=== PATIENT | female | born 1985 | race Caucasian/White ===

== ENCOUNTER 2020-10-13 10:43 | Emergency (ER) | payer BC, SELFPAY ==
[2020-10-13] VITALS (9 sets, daily range): BP systolic 118–138; BP diastolic 76–122; PULSE 56–84; RESP 12–21; TEMP 36.4; O2SAT 96
--- NOTE | ~2020-10-13 | XR_ITS ---
EXAMINATION: XR chest 1V portable EXAM DATE: 10/13/2020 11:23 INDICATION: Mid chest pain under breast. TECHNIQUE: Portable AP frontal chest x-ray was obtained. Comparison is made to prior examination from 10/27/2009. FINDINGS: The lungs are clear. There are no pleural effusions. The cardiomediastinal silhouette is within normal limits. There is no pneumothorax suspected. The bones and soft tissues are unremarkab le. IMPRESSION: No acute cardiopulmonary findings. Reviewed, dictated and finalized at location B. ICE PARTS COORDINATOR
--- NOTE | ~2020-10-13 | US_ITS ---
EXAMINATION: US abdomen limited EXAM DATE: 10/13/2020 11:52 INDICATION: Right upper quadrant pain. TECHNIQUE: Multiple grayscale and Doppler images of the abdomen right upper quadrant were obtained (b y a technologist who performed the scan) and subsequently reviewed. There is no prior study for winter marks. FINDINGS: The pancreatic head and body are normal in appearance. The pancreatic tail is not visualized. The l iver has normal echogenicity and contour. There are no focal liver lesions identified. There is no evidence of intrahepatic biliary duct dilation. Portal venous flow was seen in the hepatopedal, nor mal direction and has normal Doppler waveform. No right-sided hydronephrosis. Common bile duct measures 4 mm, which is normal. The gallbladder wall is normal in thickness, with ex pected amount of distention. No sonographic evidence of pericholecystic fluid. There is cholelithia sis. Technologist performing exam reports patient did not demonstrate sonographic Brasher's sign. P lemegan note that this sign is less reliable in patients who have received pain medication. IMPRESSION: Cholelithiasis. Reviewed, dictated and finalized at location B. INUM BOAT INSPECTOR IMPRESSION: Cholelithiasis.
--- NOTE | 2020-10-13 10:50 | ECG_ITS ---
Measurements Intervals [place] Rate: 73 P: 42 GA: 129 QRS: 40 QRSD: 105 T: 61 QT: 378 QTc: 419 Interpretive Statements SINUS RHYTHM BASELINE ARTIFACT- I, II, III, AVR, AVL, AVF NORMAL ECG Electronically Signed On 10-13-2020 11:13:20 UPPER CUTTER MACHINE by Beau Allen D.O.
[2020-10-13 11:08] LABS: Basophils Absolute Auto 0.1 K/mm3 (0.0-0.1); Basophils Percent Auto 0.7 % (0.2-1.2); Eosinophils Absolute Auto 0.3 K/mm3 (0-0.3); Hematocrit 38.7 % (37.0-47.0); Immature Granulocyte Absolute 0.01 K/mm3 (0.00-0.031); Immature Granulocyte Percent A 0.1 % (0-0.5); Lymphocytes Absolute Auto 1.94 K/mm3 (0.9-3.2); Lymphocytes Percent Auto 26.4 % (18.3-44.2); Mean Corpuscular HGB Conc 33.6 g/dl (32-36); Mean Corpuscular Hemoglobin 29.7 pg (26-34); Mean Corpuscular Volume 88.6 fl (80-100); Mean Platelet Volume 9.6 fl (7.4-10.4); Monocytes Absolute Auto 0.4 K/mm3 (0.1-0.6); Monocytes Percent Auto 4.8 % (2.6-8.5); Neutrophils Absolute Auto 4.7 K/mm3 (1.3-6.7); Platelet Count Result 380 k/mm3 (150-375); Red Blood Count 4.37 M/mm3 (4.2-5.4); Red Cell Distribution Width 12.5 % (11.5-14.5); White Blood Count 7.3 K/mm3 (4.5-10.0)
[2020-10-13 11:24] LABS: Alanine Aminotransferase 27 U/L (4-35); Albumin Level 4.2 g/dL (3.5-5.1); Alkaline Phosphatase 110 U/L (38-126); Anion Gap 6 mmol/L (8-16); Aspartate Amino Transferase 29 U/L (14-36); Bilirubin,Total 0.3 mg/dL (0.2-1.3); Blood Urea Nitrogen 16 mg/dL (7-17); Calcium 9.1 mg/dL (8.4-10.2); Carbon Dioxide 28 mmol/L (22-30); Chloride 106 mmol/L (98-107); Estimated CRCL calculation 110 ml/min; Estimated Glomerular Filt Rate > 60; Glucose 109 mg/dL (65-105); Potassium 4.2 mmol/L (3.4-5.0); Sodium 140 mmol/L (137-145)
[2020-10-13] MEDS: fentaNYL CITRATE INJ (*CRX) 100 MCG/2 ML VIAL 50 MCG IV PUSH (11:30)
--- NOTE | 2020-10-13 11:32 | PC.NURSE ---
Report to AMY Peres, to continue care.
--- NOTE | 2020-10-13 11:32 | PC.NURSE ---
received report from Mike REYES. patient medicated as ordered.
[2020-10-13 11:50] LABS: Lipase 58 U/L (23-300)
[2020-10-13 11:58] LABS: Troponin I < 0.012 ng/mL (0.000-0.034)
[2020-10-13 12:22] LABS: Add Urine Microscopic? YES; Appearance Urine Clear (Clear); Bacteria Urine 1+ /hpf; Bilirubin Urine Negative (Negative); Blood Urine 1+ (Negative); Color Urine Yellow (Yellow); Glucose Urine UA Negative (Negative); Ketones Urine Negative (Negative); Leukocyte Esterase Ur Negative LEU/UL (Negative); Mucus Urine Few /lpf; Nitrate Urine Negative (Negative); Protein Urine 1+ mg/dL (Negative); Specific Grav Ur 1.027 (1.001-1.035); Squamous Epithelial Cell Urine Few /hpf (Few); Urobilinogen Urine Negative mg/dL (<2.0); WBC Urine 0-3 /hpf
[2020-10-13] MEDS: SODIUM CHLORIDE 0.9% IV 1,000 ML 999 ML IV CONT (12:45)
[2020-10-13 12:54] LABS: Amphetamine Screen Urine Negative (Negative); Barbiturate Screen Urine Negative (Negative); Benzodiazepines Screen Urine Negative (Negative); Cannabinoid Screen Urine Negative (Negative); Cocaine Screen Urine Negative (Negative); Methadone Screen Urine Negative (Negative); Opiate Screen Urine Negative (Negative); Phencyclidine Screen Urine Negative (Negative)
[2020-10-13] MEDS: ONDANSETRON INJ 4 MG/2 ML VIAL IV PUSH (12:54)
[2020-10-13] MEDS: HYDROmorphone HCL INJ (*CRX) 1 MG/ML SYR 0.5 MG IV PUSH (13:34)
--- NOTE | 2020-10-13 14:14 | ED.ABDPAIN ---
HPI - Abdominal Pain General Chief Complaint: Abdominal Pain Stated Complaint: Right upper quadrant pain Time Seen by Provider: 10/13/20 10:50 Source: patient Mode of arrival: ambulatory Limitations: no limitations History of Present Illness HPI narrative: Patient presents with chief complaint of epigastric discomfort that wraps around to her right upper quadrant. Patient states that the pain started this morning at 6:30 AM. Patient states that she has had a few episodes of vomiting. Patient states that she has had these episodes randomly intermittently over the past year but states that they have been more frequent over the past few months. Patient states that she has not noticed triggering events however she does report eating a steak last night for dinner. Patient denies diarrhea, chest pain, shortness of breath, any other areas of abdominal pain, changes in stool. Patient states that she is not as she uses control pills. Patient states that her only chronic medical condition is anxiety. Related Data Home Medications Medication Instructions Recorded Confirmed norethindrone-e.estradiol-iron tablet 10/13/20 [Aurovela Fe 1-20 (28)] sertraline mg 10/13/20 Allergies Allergy/AdvReac Type Severity Reaction Status Date / Time No Known Allergies Allergy Verified 10/13/20 11:43 Review of Systems Review of Systems: Narrative: CONSTITUTIONAL: Denies fever, chills, or sweats. EYES: Denies visual changes, redness, or discharge. ENT: Denies rhinorrhea, congestion, sore throat, or otalgia. CARDIOVASCULAR: Denies chest pain, palpitations, or edema. RESPIRATORY: Denies cough or dyspnea. GASTROINTESTINAL: Reports abdominal pain, nausea, vomiting, denies diarrhea. GENITOURINARY: Denies dysuria or hematuria. SKIN: Denies rash or itching. MUSCULOSKELETAL: Denies back pain, joint pain, or myalgia. NEUROLOGIC: Denies headache, numbness, dizziness, or weakness. PSYCHIATRIC: Denies anxiety or depression. PMFSH Family History Family History (Updated 04/08/16 @ 23:19 by DOCTOR UNKNOWN) Grandparent Cerebrovascular accident Father Family history of diabetes mellitus in first degree relative Social History Social History Smoking status: Never smoker Second hand tobacco smoke exposure: No Smoking end date: 09/11/11 Alcohol intake: never Exam Narrative: Exam Narrative: GENERAL: Well-appearing, well-nourished, and writhing in pain HEAD: Normocephalic, atraumatic. EYES: PERRLA and EOMI. NECK: Supple. No adenopathy or masses. CHEST: Clear to auscultation. No respiratory distress. No wheezes rales or rhonchi HEART: Regular rate and rhythm. No murmur heard. Normal peripheral pulses. ABDOMEN: Soft, tender epigastrically in the right upper quadrant, nondistended, normal active bowel sounds. EXTREMITIES: Normal range of motion. No edema. SKIN: Warm, dry, no rash. NEURO: No focal deficits. Alert and oriented x3. PSYCH: Normal mood and affect. Course Vital Signs Vital signs: Vital Signs Temperature 97.5 F L 10/13/20 10:54 Pulse Rate 77 10/13/20 10:54 Respiratory Rate 18 10/13/20 10:54 Blood Pressure 120/81 10/13/20 10:54 Pulse Oximetry 96 10/13/20 10:54 Temperature 97.5 F L 10/13/20 10:54 Pulse Rate 61 10/13/20 13:31 Respiratory Rate 15 10/13/20 13:31 Blood Pressure 124/85 10/13/20 13:31 Pulse Oximetry 96 10/13/20 10:54 MDM - Abdominal Pain MDM Narrative Medical decision making narrative: Patient ultrasound shows signs of cholelithiasis without obstruction. Patient LFTs are stable. Patient is feeling improved with fluids and pain medication. Discussed follow up with general surgery regarding HIDA scan and further gallbladder evaluation. Discussed dietary restrictions to avoid/lessen flares. Discussed return to ER instructions if symptoms worsen or perist. Patient is feeling better and verbalizes understanding and agreement with plan. Differential Diagnosis
== END 2020-10-13 14:52 | disposition home or self-care (01) ==
PROVIDERS: Physician Assistant; Emergency Provider Emergency Medicine
DX: K80.20 Calculus of gallbladder without cholecystitis without obstruction (principal)
CPT/HCPCS: 36415; 71045; 76705; 80053; 80307; 81001; 81025; 83690; 84484; 85025; 93005; 96361; 96374; 96375; 99284; J1170; J2405; J3010; J7030

== ENCOUNTER 2020-10-22 12:04 | Observation (INO) | payer BC, SELFPAY ==
[2020-10-22] VITALS (14 sets, daily range): BP systolic 92–135; BP diastolic 49–81; PULSE 61–77; RESP 12–18; TEMP 35.9–36.8; O2SAT 95–100
[2020-10-22] MEDS: ONDANSETRON INJ 4 MG/2 ML VIAL IV PUSH ×2 (12:39→18:21)
[2020-10-22] MEDS: SODIUM CHLORIDE 0.9% IV 1,000 ML 999 ML IV CONT (12:39)
[2020-10-22] MEDS: MORPHINE SULFATE (*CRX) 4 MG/ML INJ IV PUSH (12:39)
--- NOTE | 2020-10-22 12:40 | ED.GENADULT ---
HPI - General Adult General Chief complaint: Abdominal Pain Stated complaint: epigastric pain Time Seen by Provider: 10/22/20 12:21 History of Present Illness HPI narrative: Patient a 35-year-old female who presents the emergency department chief complaint of right upper quadrant pain. Patient reports she has history of cholelithiasis and is actually scheduled for a cholecystectomy later this month by her surgeon Dr. Gardner patient has been taking pain medication to control her pain at home but started having worsening pain in the last 24 hours. Patient states that she had taken a couple doses of pain medicine this morning but around 6 AM she started having severe pain in the right upper quadrant. Patient states she is unable to get comfortable called her surgeon who recommended that she come to the emergency department. Related Data Home Medications Medication Instructions Recorded Confirmed norethindrone-e.estradiol-iron tablet 10/13/20 10/21/20 [Aurovela Fe 1-20 (28)] sertraline mg 10/13/20 10/21/20 Allergies Allergy/AdvReac Type Severity Reaction Status Date / Time No Known Allergies Allergy Verified 10/22/20 12:17 Review of Systems Review of Systems: Narrative: A 10 system review of systems was completed on the patient and is negative except for what is stated in the HPI. Nursing and ancillary documentation was reviewed. PMFSH Past Medical History Medical History Anxiety Surgical History Surgical History History of dilation and curettage x2 Kyle teeth extracted Family History Family History Grandparent Cerebrovascular accident Father Family history of diabetes mellitus in first degree relative Social History Social History Smoking status: Never smoker Second hand tobacco smoke exposure: No Smoking end date: 09/11/11 Alcohol intake: never Additional occupation/education comments: Sales Gender identity (if verbalized by the patient): Female Comments Past medical history significant for cholelithiasis Exam Narrative: Exam Narrative: GENERAL: Well-appearing, well-nourished, and in moderate pain distress. HEAD: Normocephalic, atraumatic. EYES: PERRLA and EOMI. ENT: Nares clear, no rhinorrhea or epistaxis. Mucous membranes moist. NECK: Supple. CHEST: Clear to auscultation. No respiratory distress. HEART: Regular rate and rhythm. No murmur heard. Normal peripheral pulses. ABDOMEN: Soft, tender to palpation in the right upper quadrant, nondistended, normal active bowel sounds. EXTREMITIES: Normal range of motion. No edema. SKIN: Warm, dry, no rash. NEURO: No focal deficits. Alert and oriented x3. PSYCH: Normal mood and affect. Course Vital Signs Vital signs: Vital Signs Temperature 36.4 C L 10/22/20 12:05 Pulse Rate 76 10/22/20 12:05 Respiratory Rate 16 10/22/20 12:05 Blood Pressure 121/68 10/22/20 12:05 Pulse Oximetry 98 10/22/20 12:05 Temperature 36.4 C L 10/22/20 12:05 Pulse Rate 76 10/22/20 12:05 Respiratory Rate 16 10/22/20 12:05 Blood Pressure 121/68 10/22/20 12:05 Pulse Oximetry 98 10/22/20 12:05 Medical Decision Making Vital Signs Vital Signs: Vital Signs Temperature 36.4 C L 10/22/20 12:05 Pulse Rate 76 10/22/20 12:05 Respiratory Rate 16 10/22/20 12:05 Blood Pressure 121/68 10/22/20 12:05 Pulse Oximetry 98 10/22/20 12:05 Temperature 36.4 C L 10/22/20 12:05 Pulse Rate 76 10/22/20 12:05 Respiratory Rate 16 10/22/20 12:05 Blood Pressure 121/68 10/22/20 12:05 Pulse Oximetry 98 10/22/20 12:05 Lab Data Result diagrams: 10/22/20 12:10 10/22/20 12:10 Labs: Lab Results 10/22/20 10/22/20 10/22/20 Range/Unit
[2020-10-22 12:44] LABS: Basophils Absolute Auto 0.1 K/mm3 (0.0-0.1); Basophils Percent Auto 0.4 % (0.2-1.2); Eosinophils Absolute Auto 0.1 K/mm3 (0-0.3); Eosinophils Percent Auto 0.5 % (0-4.4); Hematocrit 38.8 % (37.0-47.0); Hemoglobin 12.8 g/dL (12.0-15.0); Immature Granulocyte Absolute 0.03 K/mm3 (0.00-0.031); Immature Granulocyte Percent A 0.3 % (0-0.5); Lymphocytes Absolute Auto 1.37 K/mm3 (0.9-3.2); Lymphocytes Percent Auto 11.8 % (18.3-44.2); Mean Corpuscular Hemoglobin 29.2 pg (26-34); Mean Corpuscular Volume 88.6 fl (80-100); Mean Platelet Volume 9.9 fl (7.4-10.4); Monocytes Absolute Auto 0.4 K/mm3 (0.1-0.6); Neutrophils Absolute Auto 9.7 K/mm3 (1.3-6.7); Platelet Count Result 380 k/mm3 (150-375); Red Blood Count 4.38 M/mm3 (4.2-5.4); Red Cell Distribution Width 12.8 % (11.5-14.5); White Blood Count 11.6 K/mm3 (4.5-10.0)
[2020-10-22 12:52] LABS: Add Urine Microscopic? YES; Appearance Urine Clear (Clear); Bacteria Urine Trace /hpf; Bilirubin Urine Negative (Negative); Blood Urine Negative (Negative); Color Urine Yellow (Yellow); Glucose Urine UA Negative (Negative); Ketones Urine 1+ mg/dL (Negative); Leukocyte Esterase Ur Negative LEU/UL (Negative); Mucus Urine Heavy /lpf; Nitrate Urine Negative (Negative); Protein Urine 1+ mg/dL (Negative); Specific Grav Ur 1.027 (1.001-1.035); Squamous Epithelial Cell Urine Moderate /hpf (Few); WBC Urine 0-3 /hpf
[2020-10-22 13:03] LABS: Alanine Aminotransferase 22 U/L (4-35); Albumin Level 4.3 g/dL (3.5-5.1); Alkaline Phosphatase 111 U/L (38-126); Anion Gap 7 mmol/L (8-16); Aspartate Amino Transferase 27 U/L (14-36); Bilirubin,Total 0.4 mg/dL (0.2-1.3); Blood Urea Nitrogen 13 mg/dL (7-17); Calcium 9.3 mg/dL (8.4-10.2); Carbon Dioxide 26 mmol/L (22-30); Chloride 104 mmol/L (98-107); Estimated CRCL calculation 112 ml/min; Estimated Glomerular Filt Rate > 60; Glucose 109 mg/dL (65-105); Lipase 49 U/L (23-300); Potassium 3.9 mmol/L (3.4-5.0); Sodium 137 mmol/L (137-145)
[2020-10-22] MEDS: SODIUM CHLORIDE 0.9% IV 1,000 ML 500 ML (13:32)
[2020-10-22] MEDS: HYDROmorphone HCL INJ (*CRX) 1 MG/ML SYR IV PUSH (13:32)
--- NOTE | 2020-10-22 13:38 | P.HPUP_ITS ---
History and Physical Update Update Date/Time: 10/22/20 13:38 History and Physical has been reviewed, including an updated exam of the patient. There are changes in the patient's condition in that the patient called our office earlier this morning because she woke up with 10/10 pain which was not controlled after taking [place] 5/325 two times approximately 2 hours apart. Therefore, we had her come to the emergency room. Repeat labs in the emergency room today at noon do not show any significant changes. There is normal liver function tests. Her white count is slightly elevated and neutrophil percentage elevated perhaps indicating that she has begun developing acute cholecystitis. She has had COVID once this past May and now has had no symptoms of that right now. Therefore, after thorough discussion and since the patient has been NPO, I thought we should proceed with urgent surgical intervention to help her. This will involve a laparoscopic cholecystectomy, possible intraoperative cholangiogram, and possible open cholecystectomy. The risks, benefits, possible complications as discussed in the office H&P apply. She understands and wishes to proceed.. Risks, benefits, and alternatives have been discussed and questions answered. Patient agrees to proceed with procedure.
[2020-10-22] MEDS: PROCHLORPERAZINE EDISYLATE 10 MG/2 ML VIAL IV PUSH (13:40)
--- NOTE | 2020-10-22 14:01 | WPDANESEPPF ---
Anes - Initial Pre Proc Eval Procedure: Operation Date: 10/22/20 14:30 Proposed Procedures p Laparoscopic Cholecystectomy, Possible Open, Possible Intraoperative Cholangiogram - Vic Gardner MD Date/Time: 10/22/20 14:01 Surgeon: Vic Gardner MD Pre Op Diagnosis: epigastric pain Patient Data Age: 35 Gender: F Height: 1.7 m Weight: 95 kg Last Vital Signs Temp 36.4 C L 10/22/20 12:05 Pulse 77 10/22/20 13:59 Resp 14 10/22/20 13:59 BP 135/76 10/22/20 13:59 Pulse Ox 97 10/22/20 13:59 Allergies Allergy/AdvReac Type Severity Reaction Status Date / Time No Known Allergies Allergy Verified 10/22/20 12:17 Home Medications Medication Instructions Recorded Confirmed Type hydrocodone-acetaminophen [[place]] 1 tablet PO Q8H PRN #10 tablet 10/13/20 10/21/20 Rx norethindrone-e.estradiol-iron tablet 10/13/20 10/21/20 History [Aurovela Fe 1-20 (28)] sertraline mg 10/13/20 10/21/20 History ondansetron HCl 4 mg tablet 4 mg PO Q6H #10 tablet 10/21/20 10/21/20 Rx tramadol 50 mg tablet 50 mg PO Q6H PRN #30 tablet 10/21/20 10/21/20 Rx Laboratory Tests 10/22/20 10/22/20 10/22/20 12:10 12:10 12:37 WBC 11.6 K/mm3 H K/mm3 (4.5-10.0) RBC 4.38 M/mm3 M/mm3 (4.2-5.4) Hgb 12.8 g/dL g/dL (12.0-15.0) Hct 38.8 % % (37.0-47.0) MCV 88.6 fl fl (80-100) MCH 29.2 pg pg (26-34) MCHC 33.0 g/dl g/dl (32-36) RDW 12.8 % % (11.5-14.5) Plt Count 380 k/mm3 H k/mm3 (150-375) MPV 9.9 fl fl (7.4-10.4) Immature Gran % (Auto) 0.3 % % (0-0.5) Neut % (Auto) 84.0 % H % (45.5-73.1) Lymph % (Auto) 11.8 % L % (18.3-44.2) [place] % (Auto) 3.0 % % (2.6-8.5) Eos % (Auto) 0.5 % % (0-4.4) Baso % (Auto) 0.4 % % (0.2-1.2) Lymph # (Auto) 1.37 K/mm3 K/mm3 (0.9-3.2) [place] # (Auto) 0.4 K/mm3 K/mm3 (0.1-0.6) Eos # (Auto) 0.1 K/mm3 K/mm3 (0-0.3) Baso # (Auto) 0.1 K/mm3 K/mm3 (0.0-0.1) Abs Immat Gran (auto) 0.03 K/mm3 K/mm3 (0.00-0.031) Absolute Neuts (auto) 9.7 K/mm3 H K/mm3 (1.3-6.7) Absolute Nucleated RBC 0.0 K/mm3 K/mm3 (0.0-0.012) Nucleated RBC % 0.0 % % (0.0-0.2) Sodium 137 mmol/L mmol/L (137-145) Potassium 3.9 mmol/L mmol/L (3.4-5.0) Chloride 104 mmol/L mmol/L (98-107) Carbon Dioxide 26 mmol/L mmol/L (22-30) Anion Gap 7 mmol/L L mmol/L (8-16) BUN 13 mg/dL mg/dL (7-17) Creatinine 0.70 mg/dL mg/dL (0.7-1.0) Estim Creat Clear Calc 112 ml/min ml/min Estimated GFR > 60 (59 - ) Glucose 109 mg/dL H mg/dL (65-105) Calcium 9.3 mg/dL mg/dL (8.4-10.2) Total Bilirubin 0.4 mg/dL mg/dL (0.2-1.3) AST 27 U/L U/L (14-36) ALT 22 U/L U/L (4-35) Alkaline Phosphatase 111 U/L U/L (38-126) Total Protein 8.0 g/dL g/dL (6.3-8.2) Albumin 4.3 g/dL g/dL (3.5-5.1) Lipase 49 U/L U/L (23-300) Urine Color Yellow (Yellow) Urine Appearance Clear (Clear) Urine pH 6.0 (5.0-9.0) Ur Specific [place] 1.027 (1.001-1.035) Urine Protein 1+ mg/dL H mg/dL (Negative) Urine Glucose (UA) Negative mg/dL mg/dL (Negative) Urine Ketones 1+ mg/dL H mg/dL (Negative) Ur Blood (Man) Negative (Negative) Urine Nitrate Negative (Negative) Urine Bilirubin Negative (Negative) Urine Urobilinogen 2.0 mg/dL H mg/dL (<2.0) Leukocyte Esterase Rfl Negative ISIS/UL ISIS/UL (Negative) Urine RBC 3-5 /hpf H /hpf (0-2) Urine WBC 0-3 /hpf /hpf Ur Squamous Epith Cells Moderate /hpf H /hpf (Few) Urine Bacteria Trace /hpf /hpf
[2020-10-22] MEDS: LACTATED RINGERS 1,000 ML 30 ML IV CONT ×2 (14:34→16:57)
[2020-10-22] MEDS: KETOROLAC 15 MG/ML VIAL (*BKC) IV PUSH (14:34)
[2020-10-22] MEDS: ceFAZolin 2 GM/D5W 50 ML 2 GM/50 ML BAG IVPB (14:48)
[2020-10-22] MEDS: BUPIVACAINE/EPINEPHRINE 0.5% 30 ML VIAL 20 ML INFILTRATE (15:37)
--- NOTE | 2020-10-22 15:43 | SUR.OPER ---
Aerobic, anaerobic C&S, gram stain sent with GERMAINE Rodriguez and received by Marcus
--- NOTE | 2020-10-22 17:02 | PM.PROC ---
Procedure Note - Detailed Date of procedure: 10/22/20 Pre-op diagnosis: epigastric pain Acute on Chronic Cholecystitis with Cholelithiasis. Small umbilical hernia. Post-op diagnosis: same Procedure performed: 1. Laparoscopic Cholecystectomy 2. repair of small umbilical hernia Description of procedure: Patient was seen preoperatively in the ED and risks, benefits and alternatives confirmed. Patient was taken to the operating room and general anesthesia was induced. A time out was then preformed with the surgery team confirming patient and site of surgery. The abdomen was prepped and draped in the usual sterile fashion. Incision was made transversely below the umbilicus with a 15 blade knife. Following this I carefully elevated the skin of the umbilicus and dissected off the underlying umbilical hernia. Umbilical hernia sac and some of the omentum that was incarcerated in the umbilical hernia was excised. We were able to cauterize the edge of the omentum and it fell back within the abdomen and there was no bleeding from it. The defect left after doing this was approximately 12 mm and the Cali cannula fit nicely through this. I placed 2 stay sutures of O- Vicryl on either side of the mid-line fascia beneath the umbilicus and on the edge of the fascial defect of the umbilical hernia and was then able to slide in the [place]i cannula through the fascial defect into the peritoneum. First under low flow and then under high flow the abdomen was insufflated with carbon dioxide never exceeding a pressure of 14. Three 5 mm trocars were then introduced under direct vision. The following trocars were introduced under direct vision: a 5 mm in the epigastrium and two 5 mm trocars along the right costal margin laterally in the subcostal area. Careful inspection of the abdomen was then completed. There were no inguinal hernias noted. However, when I was inspecting the left lower quadrant on the peritoneum left lower abdominal sidewall there were 2 apparent areas of small endometrial implants suggestive of endometriosis. These were pictured. There were significant omental adhesions to the underside of the gallbladder. These were taken down with blunt and sharp dissection using some Bovie cautery for hemostasis. We were able to dissect this completely away from the neck of the gallbladder. Upon inspecting the gallbladder once we were into the abdomen it appeared to be very tensely distended. Therefore, I did aspirate 20 cc of white bile and sent it for Gram stain and C&S. This confirmed the diagnosis of acute cholecystitis I then carefully used the L-shaped cautery and the [place] dissector to dissect out the triangle of [place]. I then was able to dissect out both the cystic duct and cystic artery and identify a window of safety. As I went to clip the cystic duct it was noted that there was a stone impacted in the upper part of the cystic duct. So I carefully used a [place] dissector to squeeze the cystic duct and push the stone back up into the gallbladder. Then the cystic duct and artery were dissected free and clipped with an 5 mm endo-clip forest fire warden. Because the cystic duct was fairly wide I did put 3 clips on the patient's side and 1 on the gallbladder side. The cystic artery was also clipped with use of 2 clips on the patient's side 1 on the gallbladder side utilizing a 5 mm endoclip-forest fire warden. The cystic duct was then transected. The cystic artery was also transected at this point. The gall bladder was removed using electrocautery and then removed from the abdomen using an endobag. In order to get the large stone out of the abdomen within the gallbladder I did make the fascial defect slightly larger with Gold scissors. The trocars were removed visualizing hemostasis and the remaining gas evacuated. The the 15 mm umbilical defect was then closed transversely. I did this in a [id number] manner. I used 1. Vicryl 1 about 5 mm on either side of midline an
--- NOTE | 2020-10-22 18:33 | ADMGEN ---
This patient, Chelsey Paul, was admitted to [facility] Surg Room 302-01. Patient/family oriented to hospital policies and general routines including ID bracelet, bed and alarms, visiting hours, pain management, procedures, bathroom and other care routines, personal items, smoking policy, room service/diet, and visiting hours. Information on how to activate the Rapid Response Team has been discussed. Patient/Family are encouraged to report perceived risks to care and to ask questions if they do not understand what they are told or what they should do.
[2020-10-22] MEDS: SENNA/DOCUSATE SODIUM TABLET 2 TAB PO (20:21)
[2020-10-22] MEDS: ACETAMINOPHEN 325 MG TABLET 650 MG PO (22:05)
[2020-10-23 03:43] VITALS: BP 104/56; PULSE 78; RESP 16; TEMP 36.5; O2SAT 95
[2020-10-23] MEDS: ACETAMINOPHEN 325 MG TABLET 650 MG PO ×2 (05:32→14:52)
[2020-10-23] MEDS: traMADol HCL (*CRX) 50 MG TABLET PO ×2 (06:05→15:48)
[2020-10-23 06:43] LABS: Hematocrit 34.2 % (37.0-47.0); Mean Corpuscular HGB Conc 32.2 g/dl (32-36); Mean Corpuscular Hemoglobin 28.6 pg (26-34); Mean Corpuscular Volume 89.1 fl (80-100); Mean Platelet Volume 9.9 fl (7.4-10.4); Platelet Count Result 342 k/mm3 (150-375); Red Blood Count 3.84 M/mm3 (4.2-5.4); Red Cell Distribution Width 12.9 % (11.5-14.5); White Blood Count 10.5 K/mm3 (4.5-10.0)
[2020-10-23 06:49] LABS: Alanine Aminotransferase 37 U/L (4-35); Albumin Level 3.3 g/dL (3.5-5.1); Alkaline Phosphatase 80 U/L (38-126); Anion Gap 3 mmol/L (8-16); Aspartate Amino Transferase 50 U/L (14-36); Bilirubin,Total 0.3 mg/dL (0.2-1.3); Blood Urea Nitrogen 8 mg/dL (7-17); Carbon Dioxide 29 mmol/L (22-30); Chloride 106 mmol/L (98-107); Estimated CRCL calculation 112 ml/min; Estimated Glomerular Filt Rate > 60; Glucose 150 mg/dL (65-105); Lipase 62 U/L (23-300); Potassium 3.5 mmol/L (3.4-5.0); Sodium 138 mmol/L (137-145)
[2020-10-23] MEDS: ENOXAPARIN 40 MG/0.4 ML SYRINGE SUB-Q (09:07)
[2020-10-23] MEDS: MORPHINE SULFATE (*CRX) 2 MG/ML INJ IV PUSH (09:19)
--- NOTE | 2020-10-23 10:56 | WPDANESPN ---
Anes - Prog Note Post-Op Date/Time: 10/23/20 10:56 Cardiovascular status: normal Respiratory status: normal Airway patency: baseline Mental status: baseline Post-Op hydration status: normal Vital Signs: Last Vital Signs Temp 36.5 C 10/23/20 03:43 Pulse 78 10/23/20 03:43 Resp 16 10/23/20 03:43 BP 104/56 L 10/23/20 03:43 Pulse Ox 95 10/23/20 03:43 Pain Score (VAS): 09/20 I/O: Intake & Output 10/22/20 10/23/20 10/23/20 23:59 07:59 15:59 Intake Total 450 480 Output Total 900 Balance 450 -420 Laboratory Tests 10/23/20 05:49 10/23/20 05:49 10/22/20 10/22/20 10/22/20 12:10 12:10 12:37 WBC 11.6 H RBC 4.38 Hgb 12.8 Hct 38.8 MCV 88.6 MCH 29.2 MCHC 33.0 RDW 12.8 Plt Count 380 H MPV 9.9 Immature Gran % (Auto) 0.3 Neut % (Auto) 84.0 H Lymph % (Auto) 11.8 L [place] % (Auto) 3.0 Eos % (Auto) 0.5 Baso % (Auto) 0.4 Lymph # (Auto) 1.37 [place] # (Auto) 0.4 Eos # (Auto) 0.1 Baso # (Auto) 0.1 Abs Immat Gran (auto) 0.03 Absolute Neuts (auto) 9.7 H Absolute Nucleated RBC 0.0 Nucleated RBC % 0.0 Sodium 137 Potassium 3.9 Chloride 104 Carbon Dioxide 26 Anion Gap 7 L BUN 13 Creatinine 0.70 Estim Creat Clear Calc 112 Estimated GFR > 60 Glucose 109 H Calcium 9.3 Total Bilirubin 0.4 AST 27 ALT 22 Alkaline Phosphatase 111 Total Protein 8.0 Albumin 4.3 Lipase 49 Urine Color Yellow Urine Appearance Clear Urine pH 6.0 Ur Specific [place] 1.027 Urine Protein 1+ H Urine Glucose (UA) Negative Urine Ketones 1+ H Ur Blood (Man) Negative Urine Nitrate Negative Urine Bilirubin Negative Urine Urobilinogen 2.0 H Leukocyte Esterase Rfl Negative Urine RBC 3-5 H Urine WBC 0-3 Ur Squamous Epith Cells Moderate H Urine Bacteria Trace Urine Mucus Heavy H 10/23/20 10/23/20 05:49 05:49 WBC 10.5 H RBC 3.84 L Hgb 11.0 L Hct 34.2 L MCV 89.1 MCH 28.6 MCHC 32.2 RDW 12.9 Plt Count 342 MPV 9.9 Immature Gran % (Auto) Neut % (Auto) Lymph % (Auto) [place] % (Auto) Eos % (Auto) Baso % (Auto) Lymph # (Auto) [place] # (Auto) Eos # (Auto) Baso # (Auto) Abs Immat Gran (auto) Absolute Neuts (auto) Absolute Nucleated RBC Nucleated RBC % Sodium 138 Potassium 3.5 Chloride 106 Carbon Dioxide 29 Anion Gap 3 L BUN 8 D Creatinine 0.70 Estim Creat Clear Calc 112 Estimated GFR > 60 Glucose 150 H Calcium 8.0 L Total Bilirubin 0.3 AST 50 H ALT 37 H Alkaline Phosphatase 80 Total Protein 6.0 L Albumin 3.3 L Lipase 62 Urine Color Urine Appearance Urine pH Ur Specific [place] Urine Protein Urine Glucose (UA) Urine Ketones Ur Blood (Man) Urine Nitrate Urine Bilirubin Urine Urobilinogen Leukocyte Esterase Rfl Urine RBC Urine WBC Ur Squamous Epith Cells Urine Bacteria Urine Mucus Microbiology 10/22/20 15:31 Bile Anaerobic Culture - Preliminary Post-procedural complaints: none Patient Feedback: Patient satisfied with anesthetic care.
[2020-10-23 11:24] VITALS: BP 108/55; PULSE 81; RESP 18; TEMP 36.8; O2SAT 97
--- NOTE | 2020-10-23 13:29 | PM.DS ---
DS: Admitting Diagnosis Admitting Diagnosis Admitting Diagnosis: Acute on chronic cholecystitis with cholelithiasis DS: Discharge Diagnosis Discharge Diagnosis (1) Cholelithiasis with acute on chronic cholangitis without biliary obstruction: Code(s): K80.20 - Calculus of gallbladder without cholecystitis without obstruction; K83.09 - Other cholangitis Status: Acute Assessment and Plan: this was the main reason for the patient's admission. She had been seen as an outpatient but that had a severe x-ray basin of her symptoms. She came to the ER yesterday and we were able to get her on the surgery schedule at the end of the day. She has had uneventful hospital course. Going home today on tramadol with an abdominal binder to support the umbilical hernia repair which was done after completion of the laparoscopic cholecystectomy. (2) BMI 34.0-34.9,adult: Code(s): Z68.34 - Body mass index [BMI] 34.0-34.9, adult Status: Acute (3) Umbilical hernia: Qualifiers: Obstruction and gangrene presence: without obstruction or gangrene Qualified Code(s): K42.9 - Umbilical hernia without obstruction or gangrene Code(s): K42.9 - Umbilical hernia without obstruction or gangrene Status: Acute DS: Summary Hospital Course Reason for hospitalization: Acute excerbation Thatch of chronic cholecystitis with cholelithiasis Hospital Course: patient uneventful hospital course. She was moved from the ED to the preop area and then on to surgery. She had acute cholecystitis based on findings at surgery including white bile it aspirated from the gallbladder. Gallbladder wall was fairly thickened there were definite stones palpable upon removal of the gallbladder. Patient received preoperative antibiotics and I kept overnight to complete 24 hours of IV antibiotics. Interestingly, the Gram stain did come back showing gram-positive cocci the morning following surgery. She took morphine through most tonight but now has been more comfortable with ring abdominal binder has been up walking and is successfully taking some tramadol for pain. Will also send her home on Levaquin for 4 days. Time spent discussing smoking cessation with patient: more than 10 minutes Status at Discharge Cognitive/behavioral status at discharge: Back to baseline Functional status at discharge: independent ambulation Overall status at discharge: patient is not back to baseline ( Still having pain and healing from her incisions.) Time Spent with Patient Time attestation: Total time spent providing and/or coordinating discharge services: Time spent: Greater than 30 minutes Exam Const: General: cooperative, no acute distress, alert and awake Orientation/consciousness: patient oriented x3 HENMT: Mouth: Yes moist mucous membranes Neck: Neck: normal visual inspection Chest: Chest palpation & inspection: normal inspection of the chest Resp: Effort & Inspection: normal respiratory effort Auscultation: clear to auscultation bilaterally Cardio: Jugular venous distension: no JVD Rate: regular rate Rhythm: regular rhythm GI: Inspection: incision ( Clean and dry with surgical glue placed.) GI Palp: Yes abdominal tenderness (near umbilicus) Auscultation: normal bowel sounds Rectal Exam: deferred Other: There is slight bluish discoloration of the superior flap of the skin at the umbilical level. Skin appears viable. Neuro: General: patient oriented x3 and moves all extremities Speech: normal speech Extrem: General: normal exam except as noted Psych: Mental Status: mental status grossly normal Speech and movement: Normal speech and movement present Affect: normal affect Thought content: Yes Normal thought content present DS: Data Data Completed and Pending Pending studies at discharge: Pending at discharge 10/22/20 15:12 Surgical [PTH] Routine Surgical [PTH] Routine Labs on day of discharge: Labs from last 24 hours
[2020-10-23 14:58] VITALS: BP 117/69; PULSE 86; RESP 18; TEMP 36.6; O2SAT 97
[2020-10-23] MEDS: MORPHINE SULFATE (*CRX) 4 MG/ML INJ IV PUSH (16:55)
--- NOTE | 2020-10-23 19:42 | PC.NURSE ---
Pt complaining of pain 5/10 at 1400. Scheduled tylenol given, along with abx. Pt pain remained 5/10 at 1548. Tramadol given and discharge paperwork started. At 1655, when we went to proceed with discharge paperwork, pt c/o pain rated 7/10. Gave 4mg morphine. Contacted Dr. Gardner who stated to educate pt on ibuprofen Q6H with tramadol (switching to norco at next dose if tramadol is not covering pain) Q6HR three hours after ibuprofen for the first 24 hours. Education provided, along with a schedule to follow for the first 24 hours. Continued pain education for pt to slow schedule to minimizing tramadol/norco after the first [address]. [address] Gardner at 1900 pt pain remained at a 5/10, but that she felt she could go home. Dr. Gardner stressed to again educate pt on pain; informed him pain schedule and routine established. Pt d/c at 1920.
== END 2020-10-23 19:20 | disposition home or self-care (01) ==
LOC: ANHED 13:33 → ANHSURGERY 13:42 → ANH3MEDSUR 18:09 → ANHSURGERY 10-23 10:27 → ANH3MEDSUR 10-23 10:27
PROVIDERS: Emergency Medicine; Admitting Provider Surgery; Emergency Provider Emergency Medicine; Visit Provider Surgery
PROC: 0FT44ZZ Resection of Gallbladder, Percutaneous Endoscopic Approach (ICD-10-PCS; CPT 47562; principal; 2020-10-22 14:30)
DX: K80.12 Calculus of gallbladder with acute and chronic cholecystitis without obstruction (principal); K42.9 Umbilical hernia without obstruction or gangrene; F41.9 Anxiety disorder, unspecified; E66.9 Obesity, unspecified; Z68.32 Body mass index [BMI] 32.0-32.9, adult
CPT/HCPCS: 47562; 36415; 80053; 81001; 81025; 83690; 85025; 85027; 87070; 87075; 87077; 87205; 88300; 88304; 96361; 96374; 96375; 99285; A9270; G0378; J0690; J0780; J1100; J1170; J1650; J1885; J2250; J2270; J2405; J2704; J2710; J3010; J7030; J7120

== ENCOUNTER 2021-04-14 19:04 | Emergency (ER) | payer BC, SELFPAY ==
--- NOTE | ~2021-04-14 | XR_ITS ---
EXAMINATION: XR chest 2V DATE: 04/14/2021 19:25 INDICATION: Foreign body. TECHNIQUE: Frontal and lateral views of the chest were obtained. COMPARISON: Chest single view 10/13/2020 FINDINGS: The chest demonstrates clear lungs without pneumonia, pleural effusion, or pneumothorax. Th e heart size is normal. IMPRESSION: 1. No radiopaque foreign body. Reviewed, dictated and finalized at location A.
[2021-04-14 19:12] VITALS: BP 136/84; PULSE 83; RESP 16; TEMP 36.8; O2SAT 99
[2021-04-14 19:45] LABS: Basophils Percent Auto 0.3 % (0.2-1.2); Eosinophils Absolute Auto 0.4 K/mm3 (0-0.3); Eosinophils Percent Auto 3.4 % (0-4.4); Hemoglobin 13.2 g/dL (12.0-15.0); Immature Granulocyte Absolute 0.02 K/mm3 (0.00-0.031); Immature Granulocyte Percent A 0.2 % (0-0.5); Lymphocytes Absolute Auto 3.09 K/mm3 (0.9-3.2); Lymphocytes Percent Auto 25.3 % (18.3-44.2); Mean Corpuscular Hemoglobin 29.5 pg (26-34); Mean Corpuscular Volume 89.5 fl (80-100); Mean Platelet Volume 9.2 fl (7.4-10.4); Monocytes Absolute Auto 0.5 K/mm3 (0.1-0.6); Monocytes Percent Auto 4.4 % (2.6-8.5); Neutrophils Absolute Auto 8.1 K/mm3 (1.3-6.7); Neutrophils Percent Auto 66.4 % (45.5-73.1); Platelet Count Result 409 k/mm3 (150-375); Red Blood Count 4.47 M/mm3 (4.2-5.4); Red Cell Distribution Width 12.1 % (11.5-14.5); White Blood Count 12.2 K/mm3 (4.5-10.0)
[2021-04-14 20:04] LABS: Alanine Aminotransferase 17 U/L (4-35); Albumin Level 4.4 g/dL (3.5-5.1); Alkaline Phosphatase 98 U/L (38-126); Anion Gap 6 mmol/L (8-16); Aspartate Amino Transferase 27 U/L (14-36); Bilirubin,Total 0.3 mg/dL (0.2-1.3); Blood Urea Nitrogen 18 mg/dL (7-17); Calcium 9.7 mg/dL (8.4-10.2); Carbon Dioxide 26 mmol/L (22-30); Chloride 109 mmol/L (98-107); Estimated CRCL calculation 105 ml/min; Estimated Glomerular Filt Rate > 60; Glucose 99 mg/dL (65-110); Potassium 3.6 mmol/L (3.4-5.0); Sodium 141 mmol/L (137-145)
--- NOTE | 2021-04-14 21:38 | ED.GENADULT ---
HPI - General Adult General Chief complaint: Skin/Abscess/Foreign Body Stated complaint: steak in throat Time Seen by Provider: 04/14/21 21:06 History of Present Illness HPI narrative: Patient 36-year-old female presents emerged from with chief complaint of esophageal food impaction. Patient reports she was eating steak felt to get stuck in her esophagus and threw up a couple times patient reported that she was unable to swallow her own secretions and states upon arrival to the emergency department she felt as though something cleared and reports that now she is able to swallow. Patient reports she started to feel better reports that now she is able to swallow liquids and her own saliva Related Data Home Medications Medication Instructions Recorded Confirmed norethindrone-e.estradiol-iron tablet 10/13/20 12/03/20 [Aurovela Fe 1-20 (28)] sertraline 25 mg PO DAILY 10/13/20 12/03/20 Allergies Allergy/AdvReac Type Severity Reaction Status Date / Time No Known Allergies Allergy Verified 04/14/21 21:14 Review of Systems Review of Systems: A 10 system review of systems was completed on the patient and is negative except for what is stated in the HPI. Nursing and ancillary documentation was reviewed. FOR[facility]LY [facility] Past Medical History Medical History Anxiety Biliary colic BMI 34.0-34.9,adult Chronic cholecystitis with calculus Umbilical hernia Surgical History Surgical History History of dilation and curettage x2 History of umbilical hernia repair 10/22/20 Hx laparoscopic cholecystectomy [place] teeth extracted Family History Family History Grandparent Cerebrovascular accident Father Family history of diabetes mellitus in first degree relative Social History Social History Smoking status: Former smoker Second hand tobacco smoke exposure: No Smoking end date: 09/11/17 Alcohol intake: never Substance use: never Additional occupation/education comments: Sales Gender identity (if verbalized by the patient): Female Spiritual care concerns: No Exam Narrative: GENERAL: Well-appearing, well-nourished, and in no acute distress. HEAD: Normocephalic, atraumatic. EYES: PERRLA and EOMI. ENT: Nares clear, no rhinorrhea or epistaxis. Mucous membranes moist. NECK: Supple. CHEST: Clear to auscultation. No respiratory distress. HEART: Regular rate and rhythm. No murmur heard. Normal peripheral pulses. ABDOMEN: Soft, nontender, nondistended, normal active bowel sounds. EXTREMITIES: Normal range of motion. No edema. SKIN: Warm, dry, no rash. NEURO: No focal deficits. Alert and oriented x3. PSYCH: Normal mood and affect. Course Course Emergency Course: Patient was feeling much better the patient was able to tolerate water and then was able to tolerate a carbonated clear soda Vital Signs Vital signs: Vital Signs Temperature 36.8 C 04/14/21 19:12 Pulse Rate 83 04/14/21 19:12 Respiratory Rate 16 04/14/21 19:12 Blood Pressure 136/84 04/14/21 19:12 Pulse Oximetry 99 04/14/21 19:12 Temperature 36.8 C 04/14/21 19:12 Pulse Rate 83 04/14/21 19:12 Respiratory Rate 16 04/14/21 19:12 Blood Pressure 136/84 04/14/21 19:12 Pulse Oximetry 99 04/14/21 19:12 Medical Decision Making Vital Signs Vital Signs: Vital Signs Temperature 36.8 C 04/14/21 19:12 Pulse Rate 83 04/14/21 19:12 Respiratory Rate 16 04/14/21 19:12 Blood Pressure 136/84 04/14/21 19:12 Pulse Oximetry 99 04/14/21 19:12 Temperature 36.8 C 04/14/21 19:12 Pulse Rate 83 04/14/21 19:12 Respiratory Rate 16 04/14/21 19:12 Blood Pressure 136/84 04/14/21 19:12 Pulse Oximetry 99 04/14/21 19:12 Lab Data Result diagrams:
== END 2021-04-14 21:55 | disposition home or self-care (01) ==
PROVIDERS: Family Medicine; Emergency Provider Emergency Medicine; PCP Family Medicine
DX: T18.128A Food in esophagus causing other injury, initial encounter (principal); F41.9 Anxiety disorder, unspecified; Z87.891 Personal history of nicotine dependence
CPT/HCPCS: 36415; 71046; 80053; 85025; 99283